=== PATIENT | female | born 1950 | race Hispanic/Latino ===

== ENCOUNTER 2018-01-11 05:02 | Emergency (ER) | payer MEDICARE ==
[2018-01-11 05:15] VITALS: RESP 20
--- NOTE | 2018-01-11 05:41 | C.PDOC ---
History Of Present Illness 67 year old female presents to the ED c/o sharp like pain to the right upper chest s/p biopsy done 6 days ago. Patient reports feeling minimal soreness to the area of the biopsy prior to today's visit. Patient states cough is worse with cough (chronic) and deep inspiration. Pt is scheduled for a bronchoscopy tomorrow. Patient denies fever, chills, nausea, vomit, trauma, fall. Time Seen by Provider: 01/11/18 05:19 Chief Complaint (Nursing): Pain, Chronic History Per: Patient History/Exam Limitations: no limitations Onset/Duration Of Symptoms: Days Current Symptoms Are (Timing): Still Present Recent travel outside of the [place]: No Additional History Per: Patient Past Medical History Reviewed: Historical Data, Nursing Documentation, Vital Signs Vital Signs: Last Vital Signs Temp 98 F 01/11/18 06:20 Pulse 84 01/11/18 06:20 Resp 20 01/11/18 06:20 BP 169/87 H 01/11/18 06:20 Pulse Ox 96 01/11/18 06:26 - Medical History PMH: HTN, Hypothyroidism Surgical History: No Surg Hx Family History: States: Unknown Family Hx - Social History Hx Tobacco Use: Yes Hx Alcohol Use: No Hx Substance Use: No Review Of Systems Constitutional: Negative for: Fever, Chills Cardiovascular: Positive for: Chest Pain. Negative for: Palpitations Respiratory: Positive for: Cough. Negative for: Shortness of Breath Gastrointestinal: Negative for: Vomiting, Abdominal Pain Musculoskeletal: Negative for: Back Pain Skin: Negative for: Rash Neurological: Negative for: Weakness, Numbness Physical Exam - Physical Exam Appears: Non-toxic, No Acute Distress Skin: Normal Color, Warm, Dry Head: Atraumatic, Normacephalic Eye(s): bilateral: Normal Inspection Nose: No Discharge Oral Mucosa: Moist Neck: Normal ROM, Supple Chest: Symmetrical, Tenderness (right upper chest t3/t4 area) Cardiovascular: Rhythm Regular, No Murmur, No Other (no induration, erythema, crepitus) Respiratory: Normal Breath Sounds, No Rales, No Rhonchi, No Wheezing Gastrointestinal/Abdominal: Soft, No Tenderness, No Guarding, No Rebound Extremity: Normal ROM, No Tenderness, No Swelling Neurological/Psych: Oriented x3, Normal Speech Gait: Steady ED Course And Treatment O2 Sat by Pulse Oximetry: 96 (On RA) Pulse Ox Interpretation: Normal - Radiology CXR: Interpreted by Me CXR Interpretation: No: Pnemothorax, Other (effusion) Progress Note: Plan: - Ultram 50 mg PO. - CXR. Pt reports some improvement of the pain, CXR reviewed- no infiltrate, pneumothorax or effusion. Pt remained stable in no resp distress, pt instructed to continue tramadol for pain, follow up with PMD today and return precautions discussed and pt agreed with plan Reevaluation Time: 06:23 Reassessment Condition: Improved Disposition Counseled Patient/Family Regarding: Diagnosis, Need For Followup, Rx Given - Disposition Referrals: Shaggy Hardin MD [Staff Provider] - Disposition: HOME/ ROUTINE Disposition Time: 06:24 Condition: GOOD Additional Instructions: Take tramadol PO Avoid heavy lifting Follow up wth your doctor today or tomorrow Return to ER if worse Prescriptions: traMADol [Ultram] 50 mg PO TID #10 tab Instructions: Costochondritis (DC) Forms: [employer] ([place]ian) - Clinical Impression Clinical Impression: Right-sided chest wall pain - PA / INPATIENT PHARMACIST / Resident Statement MD/DO has reviewed & agrees with the documentation as recorded. - Scribe Statement The provider has reviewed the documentation as recorded by the Scribe Teodoro Crisostomo All medical record entries made by the Scribe were at my direction and personally dictated by me. I have reviewed the chart and agree that the record accurately reflects my personal performance of the history, physical exam, medical decision making, and the department course for this patient. I have also personally directed, reviewed, and agree with the discharge instructions and disposition.
[2018-01-11 06:21] VITALS: BP 169/87; PULSE 84; TEMP 98
[2018-01-11 06:24] VITALS: O2SAT 96
--- NOTE | 2018-01-11 10:08 | RAD ---
HISTORY: pain at biopsy site COMPARISON: No prior. TECHNIQUE: Chest PA and lateral FINDINGS: LUNGS: No active pulmonary disease. PLEURA: No significant pleural effusion identified. No pneumothorax apparent. CARDIOVASCULAR: Normal. OSSEOUS STRUCTURES: No significant abnormalities. VISUALIZED UPPER ABDOMEN: Normal. OTHER FINDINGS: None. IMPRESSION: No active disease.
== END 2018-01-11 06:29 | disposition home or self-care (01) ==
LOC: C.ER 05:02
DX: R07.89 Other chest pain (principal); I10 Essential (primary) hypertension; F17.210 Nicotine dependence, cigarettes, uncomplicated